=== PATIENT | female | born 1965 | race Caucasian/White ===

== ENCOUNTER 2017-07-31 11:46 | Emergency (ER) | payer OTHER ==
--- NOTE | 2017-07-31 12:07 | EDPHY ---
H & P Stated Complaint: Fall, L arm pain Time Seen by Provider: 07/31/17 11:54 HPI/ROS: CHIEF COMPLAINT: Left elbow pain HISTORY OF PRESENT ILLNESS: 52-year-old female presents after a fall with left elbow pain. She tripped and fell forward on an outstretched hand just prior to arrival. Immediate onset of severe left elbow pain. The pain increases with any movement. Intranasal fentanyl given prior to arrival by EMS. No other injuries. Last oral intake at breakfast. REVIEW OF SYSTEMS: complete 10 point ROS negative except at noted in the HPI - Personal History Current Tetanus/Diphtheria Vaccine: Unsure Current Tetanus Diphtheria and Acellular Pertussis (TDAP): Unsure - Medical/Surgical History Hx Asthma: No Hx Chronic Respiratory Disease: No Hx Diabetes: Yes Hx Cardiac Disease: No Hx Renal Disease: No Hx Cirrhosis: No Hx Alcoholism: No Hx HIV/AIDS: No Hx Splenectomy or Spleen Trauma: No Other PMH: hyperlipidemia, arthritis, nerve pain, DM II, HTN - Social History Smoking Status: Never smoked Alcohol Use: Sober Drug Use: None - Physical Exam Exam: Alert and oriented, pleasant General: Diaphoretic, appears in pain HEENT: Normal inspection Chest: Clear to auscultation Cardiovascular: Regular rhythm rate Abdomen: Soft and nontender Extremities: Left elbow-diffuse tenderness, pain with any range of motion Skin: Intact Neuro: Motor and sensory intact Vascular: Capillary refill brisk distally, radial pulse 2 +. Psych: Mood and affect are normal Constitutional: Initial Vital Signs Temperature (C) 36.4 C 07/31/17 12:01 Heart Rate 79 07/31/17 12:01 Respiratory Rate 16 07/31/17 12:01 Blood Pressure 161/94 H 07/31/17 12:01 O2 Sat (%) 98 07/31/17 12:01 O2 Delivery Mode [Post Non-Rebreather Mask Procedure 1st] O2 Delivery Mode [Procedural Non-Rebreather Mask 3rd] O2 Delivery Mode [Procedural Non-Rebreather Mask 2nd] O2 Delivery Mode [Procedural Non-Rebreather Mask 1st] O2 Delivery Mode [.Immediate Non-Rebreather Mask Pre-Procedure] O2 Delivery Mode Room Air O2 (L/minute) [Post Procedure 15 1st] O2 (L/minute) [Procedural 3rd] 15 O2 (L/minute) [Procedural 2nd] 15 O2 (L/minute) [Procedural 1st] 15 O2 (L/minute) [.Immediate Pre- 15 Procedure] Allergies/Adverse Reactions: No Known Allergies Allergy (Verified 07/31/17 11:59) Home Medications: Medication Instructions Recorded Bp Med 07/31/17 Cymbalta 07/31/17 Glucotrol 07/31/17 Hydrocodone/APAP 5/325 [Solon 1 - 2 tab PO Q4H PRN #20 tab 07/31/17 5/325] Lipitor 07/31/17 Metformin HCl 07/31/17 novoLOG 07/31/17 Medical Decision Making - Diagnostics Imaging Results: Elbow X-Ray 07/31/17 12:05 Impression: 1. Posterior dislocation. 2. Acute radial head fracture. 3. Chip fracture off distal humerus resides adjacent radial head. Elbow X-Ray 07/31/17 13:32 Impression: 1. Good postreduction alignment. 2. Small bone chip and suspected radial head fracture are not well characterized. Imaging: Discussed imaging studies w/ [facility] Radiologist, I viewed and interpreted images myself Procedures: Procedure: Dislocation reduction. Indication: Dislocation of the left elbow joint. Risks, benefits, alternatives discussed with the patient and consent obtained. The elbow was reduced in the usual fashion without complications. Post reduction the patient's neurovascular exam is normal. Post reduction x-ray demonstrates reduction of the joint to the anatomic position. The procedure was performed by myself. Procedure: Procedural sedation. A pre-sedation evaluation was completed on the patient on patient arrival. Patient is an appropriate candidate for procedural sedation. The risks of the sedation were discussed with the patient. The patient's airway was evaluated with a 3-3-2 rule; Mallampati score: 1E. A time out was completed. The patient was sedated with propofol 100 mg IV. The patient was monitored with continuous pulse oximetry, capnography and environmental monitoring specialist. There were no complications and no significant hypoxemia. I remained at the bedside for the sedation. The total time I spent in the procedural sedation was 20 minutes. Orthoglass posterior arm splint placed by the gas technician. Neurovascularly intact after application and alignment adequate. ED Course/Re-evaluation: This pt presents with a left elbow fx/dislocation. Elbow dislocation easily reduced, but feels unstable after reduction. C-arm used to ensure reduction immediately after the procedure. Placed in a posterior long arm splint. Xray reveals adequate reduction. Results d/w pt, will f/u with ortho. Differential Diagnosis: includes though not limited to open fracture, neuro compromise, vascular compromise - Data Points Medications Given: Discontinued Medications Morphine Sulfate (Morphine) 4 mg IVP EDNOW ONE Stop: 07/31/17 13:32 Last Admin: 07/31/17 13:31 Dose: 4 mg Propofol (Diprivan) 100 mg IVP EDNOW ONE Stop: 07/31/17 13:19 Last Admin: 07/31/17 15:12 Dose: Not Given Departure - Departure Disposition: Home, Routine, Self-Care Clinical Impression: Closed fracture dislocation of elbow Qualifiers: Encounter type: initial encounter Laterality: left Qualified Code(s): S42.402A - Unspecified fracture of lower end of left humerus, initial encounter for closed fracture Condition: Good Instructions: Elbow Dislocation (ED) Additional Instructions: Keep your arm elevated whenever possible. Ice for 20 min every 1-2 hours. Return for worsening symptoms or any concerns. Referrals: Teodoro Saeed MD [Medical Doctor] - 2-3 days without fail (Call to make an appointment for early next week.) Prescriptions: Hydrocodone/APAP 5/325 [Solon 5/325] 1 - 2 tab PO Q4H PRN #20 tab PRN Reason: Pain, Moderate
[2017-07-31] MEDS ORDERED: PROPOFOL 200 MG/20 ML VIAL ONE (13:08)
[2017-07-31] MEDS ORDERED: PROPOFOL 200 MG/20 ML VIAL IVP ONE (13:18)
[2017-07-31 14:21] VITALS: BP 153/90
== END 2017-07-31 15:06 | disposition home or self-care (01) ==
PROC: 0PSJXZZ Reposition Left Radius, External Approach (ICD-10-PCS; principal; 2017-07-31)
DX: S52.122A Displaced fracture of head of left radius, initial encounter for closed fracture (principal); I10 Essential (primary) hypertension; E11.9 Type 2 diabetes mellitus without complications; Z79.4 Long term (current) use of insulin; W01.0XXA Fall on same level from slipping, tripping and stumbling without subsequent striking against object, initial encounter
CPT/HCPCS: 96374; A4565; J2270; J2704